=== PATIENT | male | born 1995 | race Caucasian/White ===

== ENCOUNTER 2019-07-19 19:30 | Emergency (ER) | payer OTHER ==
[~2019-07-19] VITALS: Ht 182.9 cm; Wt 88.5 kg
[2019-07-19 19:45] VITALS: BP 135/91
[2019-07-19] MEDS ORDERED: FLUORESCEIN OPHTHALMIC 1 MG STRIP EACHEYE ONE (20:00)
[2019-07-19] MEDS ORDERED: PROPARACAINE OPHTH 0.5%, 15ML EACHEYE ONE (20:00)
[2019-07-19] MEDS ORDERED: FLUORESCEIN OPHTHALMIC 1 MG STRIP ONE (20:16)
[2019-07-19] MEDS ORDERED: PROPARACAINE OPHTH 0.5%, 15ML ONE (20:16)
== END 2019-07-19 21:09 | disposition home or self-care (01) ==
LOC: ED 21:03
DX: T15.01XA Foreign body in cornea, right eye, initial encounter (principal); X58.XXXA Exposure to other specified factors, initial encounter; Y93.89 Activity, other specified; Y92.89 Other specified places as the place of occurrence of the external cause; Y99.8 Other external cause status
CPT/HCPCS: 99283